=== PATIENT | female | born 1955 | race Caucasian/White ===

== ENCOUNTER 2017-09-21 13:17 | Outpatient (CLI) | payer OTHER ==
--- NOTE | 2017-09-21 16:00 | XRAY Report ---
THREE VIEW BILATERAL FEET: 09/21/2017 CLINICAL INDICATION: Pain. FINDINGS: AP, lateral, and oblique views of the bilateral feet demonstrate mild osteoarthritis of the first metatarsophalangeal joints and interphalangeal joints. There is no evidence of acute fracture or dislocation. No radiopaque foreign body is seen in the soft tissues. IMPRESSION: MILD OSTEOARTHRITIS AT THE FIRST METATARSOPHALANGEAL JOINTS BILATERALLY. TD: 09/21/2017 15:59
== END 2017-09-21 13:18 | disposition home or self-care (01) ==
LOC: DI.S 13:17
PROVIDERS: ATTEND Anesthesiology
DX: M19.071 Primary osteoarthritis, right ankle and foot (principal); M19.072 Primary osteoarthritis, left ankle and foot

== ENCOUNTER 2017-09-26 10:18 | Outpatient (CLI) | payer OTHER ==
--- NOTE | 2017-09-26 12:59 | XRAY Report ---
TWO VIEW CHEST: 09/26/2017 CLINICAL INDICATION: Back pain, cough. FINDINGS: Frontal and lateral views of the chest demonstrate a normal cardiac silhouette. The lungs are clear. No effusion or pneumothorax is present. IMPRESSION: NORMAL CHEST. TD: 09/26/2017 12:58
== END 2017-09-26 10:19 | disposition home or self-care (01) ==
LOC: DI.S 10:18
PROVIDERS: ATTEND Nurse Practitioner Family
DX: R05 Cough (principal); M54.9 Dorsalgia, unspecified
CPT/HCPCS: 71046

== ENCOUNTER 2020-12-17 12:13 | Outpatient (CLI) | payer MEDICARE ==
--- NOTE | 2020-12-17 13:35 | SLEEP CARE CONSULTATION ---
Information from patient questionnaire entered by Belle Temple. I have reviewed and concur with the information entered by Belle Temple. This document represents the service I personally performed and the decisions made by me, Darlin Marks ARNP. History of Present Illness Service Date and Time: 12/17/2020 1213 Reason for Visit: New patient Chief Complaint: reports: Unrefreshed sleep, Snoring, Other (Change in voice). denies: Observed pauses in breathing Date of Onset: voice change - approx 4 month Usual bedtime: 8 pm Time it takes to fall asleep: 30 minutes Snores at night: Yes Observed to quit breathing while asleep: No (unsure) Sleeps alone due to snoring: Yes (sometimes) Number of times waking at night: 1 Reasons for waking at night: reports: Snoring, Bathroom, Other (unknown reason). denies: Choking, Gasping for air Toss, Turn, or Twitch while sleeping: No (not sure) Recalls having dreams: Yes (sometimes; has occasional nightmares) Usually gets out of bed at: 5 am Feels refreshed in the morning: No (not sure) Morning headache: No Sleepy or fatigued during the day: No (not really) Ever fallen asleep while driving: No Takes day naps: Yes (sometimes/rarely) Dreams during day naps: No Prior sleep studies: No Additional HPI information: I had the pleasure of seeing EVELIO DAY today regarding the possibility of her having a sleep disorder. Her current complaints are snoring and a change in voiced for approximately 4 months. She has been told in the past that she snores loudly and others have not wanted to sleep in same room. No one has told her she has observed pauses in breathing. She is not sure is she is not rested in the morning. It does take her a long time to wake up but does not feel she is sleepy after she wakes up. She denies morning headaches. She does fall asleep very easily in many places or positions. She does wake up with very dry mouth and throat often. She states her mother snores very loudly and both her grandparents snored and choked in their sleep. She did not know if any were diagnosed with sleep apnea. She has a new boyfriend and is embarrassed about her snoring. She also has a followup with an ENT specialist to be evaluated for change in voice with tinnitus that started about 4 months ago. - Parasomnia Symptoms Ever been unable to move upon waking from sleep: No Walks in sleep: No Talks in sleep: Yes (I scream violently from nightmares twice a year) Ever acted out dreams in sleep: Yes Ever felt weak in the knees when startled or emotional: No Bothered by creepy, crawly, restless sensations in legs: No Problems with memory or concentration: Yes (thinks she is ADD, has trouble completing tasks; age related short term mem) Subjective Initial [place] Sleepiness Scale score: 10 (in 2020) Past Medical History Past Medical History: reports: Arthritis (feet and spine), Anxiety, Asthma (exercise induced asthma 20 years ago), Depression, GERD (?; possibly, ENT follow up for throat/voice change), Attention deficit, Other (change in voice - raspy) Social History The patient's occupation is a [employer]. Patient is and lives in [place]. Have you smoked in the past 12 months: No Alcohol use: Yes Alcohol amount and frequency: 1 beer maybe twice a month Caffeine use: Yes Caffeine amount and frequency: 2 cups of green tea every day Family History Family history of sleep disordered breathing: Yes Family Hx Sleep Apnea: Mother: Snoring, Grandparent: Snoring, Sleep apnea - Untreated Allergies and Home Medications Drug allergies reviewed: Yes (neosporin) Home medication list reviewed: Yes (no daily medication) Review of Systems Weight gain over past 5 years: 10 Cardiovascular: denies: high blood pressure Gastrointestinal: denies: heartburn Neurological: denies: headaches Psychiatric: reports: anxiety (situational), depression (mild) Ear/Nose/Throat: reports: dry mouth/throat, hoarseness, wisdom teeth removed. denies: tonsillectomy Musculoskeletal: reports: joint pain (stiffness in feet) Physical Exam Blood Pressure: 118/77 Cuff size: wrist Heart Rate: 73 O2 Saturation: 100 Height: 5 ft 1.5 in Weight: 135 lb Body Mass Index: 25.0 BMI Classification: Overweight Neck circumference: 13.5 (inches) Soft palate: long Hard palate: normal Uvula: normal Uvula visualization: 100% Mallampati Class I Tongue: enlarged in size with teeth bianchi on lateral edges Tonsils: small Neck: normal w/o lymphadenopathy or thyromegaly Heart: regular rate and rhythm Lungs: clear bilaterally Impression and Plan 1. Suspected Obstructive Sleep Apnea-Hypopnea Syndrome, as suggested by a history of loud and irregular snoring, unrefreshed sleep, and cognitive impairment. Narrow oropharynx and obesity are common predisposing factors for obstructive sleep apnea-hypopnea syndrome. I recommend proceeding to polysomnography to confirm the diagnosis and to assess severity. If the patient has significant sleep disordered breathing, a manual CPAP titration study will also be performed to find the optimal treatment pressure. I informed the patient of what the sleep studies involve and after some discussion, obtained agreement to proceed. The pathophysiology of obstructive sleep apnea-hypopnea syndrome was discussed with the patient and health risks of cardiovascular and cerebrovascular disease if not treated. AAS brochure for obstructive sleep apnea-hypopnea syndrome given and reviewed. Risks of drowsy driving discussed in detail and patient advised to avoid long distance driving and to sinker puller at the first sign of drowsiness. Patient agreed to plan. * Schedule polysomnography +- manual CPAP titration study and return in 1-2 weeks after the study to discuss result and initiate therapy. * Avoid long distance driving or driving when feeling sleepy. * Avoid alcohol, sedative and muscle relaxant around bedtime. * Attempt to lose weight. * Review instructions provided by trained office staff on how to prepare for the sleep study. * Return for follow-up after sleep study completed. Counseling Topics: Weight loss health impact Visit Type: In Office Time Spent with Patient (minutes): 36 Provider Statement: I spent 100% of the Face to Face Visit with the patient with greater than 50% spent counseling the patient and coordination of care.
[2020-12-17 13:38] VITALS: BP 118/77
== END 2020-12-17 12:14 | disposition home or self-care (01) ==
LOC: SC 12:13
PROVIDERS: ATTEND Nurse Practitioner Family
DX: G47.8 Other sleep disorders (principal); R41.89 Other symptoms and signs involving cognitive functions and awareness; R06.83 Snoring; E66.3 Overweight; Z68.1 Body mass index [BMI] 19.9 or less, adult
CPT/HCPCS: 99203; G0463; 99212

== ENCOUNTER 2021-02-05 19:20 | Outpatient (CLI) | payer MEDICARE | END 2021-02-05 19:21 | disposition home or self-care (01) | LOC: SC 19:20 | PROVIDERS: ATTEND Nurse Practitioner Family | DX: G47.33 Obstructive sleep apnea (adult) (pediatric) (principal); G47.61 Periodic limb movement disorder | CPT/HCPCS: 95810 ==

== ENCOUNTER 2021-03-05 08:42 | Outpatient (CLI) | payer MEDICARE ==
[2021-03-05 09:30] VITALS: BP 113/55
--- NOTE | 2021-03-05 09:30 | SLEEP CARE CONSULTATION ---
Information from patient questionnaire entered by Belle Temple. I have reviewed and concur with the information entered by Belle Temple. This document represents the service I personally performed and the decisions made by , Darlin Marks ARNP. History of Present Illness Service Date and Time: 03/05/2021 0842 Initial [place] Sleepiness Scale score: 10 (in 2020) Current [place] Sleepiness Scale score: 5 Additional HPI information: EVELIO DAY returns for follow up and results of the recently performed polysomnography. I explained the pathophysiology behind obstructive sleep apnea. We then spent quite a bit of time discussing different treatment options. For mild obstructive sleep apnea, surgery and oral appliance are alternatives to nasal CPAP therapy but in moderate or severe cases, nasal CPAP is the most effective and reliable treatment. Because apnea is primarily in supine position, then positional management therapy could be effective. Methods discussed such as positioning with pillows, using a T-shirt with tennis balls in the back, and shown commercial products that have a pillow format on back to prevent supine sleep. I reviewed the impact of weight changes on sleep apnea and strongly recommended losing weight. Patient counseled not drink alcohol less than 4 hours before bedtime as it can increase snoring and apnea. Patient was cautioned about risks of drowsy driving until sleepiness symptoms resolve. Sleep Study - Results Type of Sleep Study: Polysomnography Prior sleep studies: No Polysomnography/Home Sleep Study results: IMPRESSION: The quality of the study is good. The patient had reduced sleep efficiency due to a prolonged awakening in the middle of the night. The sleep architecture was abnormal for sleep fragmentation and reduced amount of time spent in REM sleep. Respiratory monitoring showed moderate obstructive sleep apnea-hypopnea (AHI = 22.6) associated with frequent arousals, oxyhemoglobin desaturation and mild hypoxia (car[place] ann oxygen saturation of 84%). The respiratory events occurred almost exclusively during supine sleep (supine AHI = 39.1; non-supine = 1.21). Snore was light in intensity. There was moderate periodic leg movement of sleep, not contributing to the sleep fragmentation. Cardiac rhythm was normal sinus rhythm without significant arrhythmia. No abnormal behavior (parasomnia) observed during the night. Allergies and Home Medications Home medication list reviewed: Yes (no changes) Review of Systems Review of systems same as previous: Yes (no changes) Physical Exam Blood Pressure: 113/55 Cuff size: wrist Heart Rate: 60 O2 Saturation: 98 Height: 5 ft 1.5 in Weight: 130 lb Weight change since last visit: 5 lb loss Body Mass Index: 24.1 BMI Classification: Healthy weight Impression and Plan 1. Obstructive Sleep Apnea-Hypopnea Syndrome, moderate, with lowest oxygen saturation of 84%. Since patients apnea is primarily in supine position, patient advised to try positional therapy and agreed with plan. She is also advised to maintain a healthy weight as this will reduce snoring and apnea. An oral appliance can also be used for snoring but often is not covered by [facility]. Follow up is scheduled for 6 months since patient has already been practicing positional therapy for long time with good results (no daytime fatigue or sleepiness and restful sleep). She normally uses pillows for positional comfort on her side. 2. Periodic limb movement, moderate, that did not fragment patients sleep. Periodic limb movement of sleep (PLMS) is characterized by episodes of r epetitive limb movements that occur during sleep and usually involve the lower limbs. Caffeine can also aggravate PLMS and should be avoided. Sleep hygiene methods can also improve sleep as well as lifestyle changes such as regular exercise. Patient was advised that no treatment is needed at this time. If symptoms increase, then further evaluation is indicated. * Positional therapy * Maintain healthy weight * Call this office if any problems * Return for follow up in 6 months, or sooner if concerns arise Counseling Topics: Weight control Visit Type: In Office Time Spent with Patient (minutes): 29 Provider Statement: I spent 100% of the Face to Face Visit with the patient with greater than 50% spent counseling the patient and coordination of care.
== END 2021-03-05 08:43 | disposition home or self-care (01) ==
LOC: SC 08:42
PROVIDERS: ATTEND Nurse Practitioner Family
DX: G47.33 Obstructive sleep apnea (adult) (pediatric) (principal); G47.61 Periodic limb movement disorder
CPT/HCPCS: 99213; G0463; 99212

== ENCOUNTER 2022-11-12 04:05 | Outpatient (CLI) | payer MEDICARE | END 2022-11-12 04:06 | disposition EMS.NT | LOC: EMS 04:05 | DX: F41.9 Anxiety disorder, unspecified (principal) ==